=== PATIENT | male | born 1945 | race Caucasian/White ===

== ENCOUNTER 2016-06-20 13:53 | Observation (INO) | payer OTHER, MEDICARE ==
[~2016-06-20] VITALS: Ht 175.3 cm; Wt 107.0 kg
[~2016-06-20 13:53] MED LIST: ARICEPT5 MG PO; ASPIR-TRIN325 M1 PO; ASPIRIN325 MG PO; BENICAR20 MG PO; BISOPROLOL-HCT1 EACH PO; CALTRATE 6001 TABLET PO; COUMADIN,JANTOVE1 MG PO; Coumadin,Jantoven PO; DONEPEZIL HCL10 MG PO; EFFEXOR75 MG PO; ENDOCET 5-3251 EACH PO; FISH OIL 1,2001 EAC3 PO; Keflex PO; LEVOTHYROXINE175 MCG PO; Levothroid,Synthroid PO; Lovenox SC; MEVACOR40 MG PO; MULTIVITAMIN1 EAC2 PO; Omega III EPA + DHA PO; PAXIL10 MG PO; PRAVACHOL80 MG PO; PRILOSEC20 MG PO; PROSCAR5 MG PO; Paxil PO; Prilosec PO; Proscar PO; THERAGRAN1 TABLET PO; TRICOR145 MG PO; VICODIN,LORT1 TABLET PO
[2016-06-20 14:37] LABS: HEMATOCRIT 44.7 % (38.0-50.0); MCH 30.6 PG (29.0-34.0); MCHC 33.1 G/DL (30.0-36.0); MCV 92.4 FL (86-99); MEAN PLAT.VOLUME 11.1 uM^3 (9.0-12.4); PLATELET COUNT 163 K/uL (156-360); RBC DIS.WIDTH-CV 15.1 % (11.8-14.6); RBC DIS.WIDTH-SD 50.9 % (39-53); RED BLOOD COUNT 4.84 M/uL (4.00-5.50)
[2016-06-20 14:40] LABS: WHITE BLOOD COUNT 9.7 K/uL (4.1-10.2)
[2016-06-20 14:42] LABS: CHLORIDE 115 mEq/L (99-109); POTASSIUM 4.4 mEq/L (3.7-5.4); SODIUM 144 mEq/L (136-147)
[2016-06-20 14:44] LABS: GLUCOSE 91 mg/dL (70-99)
[2016-06-20 14:45] LABS: ANION GAP 11 MEQ/L (2-14)
[2016-06-20 14:47] LABS: GFR ESTIMATE (CALCULATED) > 59 mL/min/
[2016-06-20 14:48] LABS: UREA NITROGEN (BUN) 24 mg/dL (9-23)
[2016-06-20 15:37] LABS: INTER. NORMALIZED RATIO 1.1; PROTHROMBIN TIME 11.5 (9.2-11.2); PTT 33.6 (25-32)
[2016-06-20 15:46] LABS: TROP-I INTERPRETATION NEGATIVE; TROPONIN-I < 0.01 ng/mL (0.0-0.30)
[2016-06-20 16:58] LABS: ADD MIUA? YES; BILIRUBIN NEGATIVE; BLOOD NEGATIVE; COLOR YELLOW ((YELLOW)); GLUCOSE (STRIP) NEGATIVE; KETONES NEGATIVE; LEUKOCYTES NEGATIVE; NITRITE NEGATIVE; PROTEIN (STRIP) 30; SPECIFIC GRAVITY 1.021 (1.000-1.030); UROBILINOGEN 0.2 MG/DL (0.2-1.0)
[2016-06-20 17:33] LABS: AMORPHOUS URATES CRYSTALS 2+; BACTERIA NONE SEEN /HPF; CASTS NONE SEEN /LPF; CRYSTALS PRESENT; EPITHELIAL CELLS RARE /HPF; MUCUS NONE SEEN /LPF; RED BLOOD CELLS RARE /HPF (0-5); UCUL ADDED? NO; WHITE BLOOD CELLS NONE SEEN /HPF (0-5)
[2016-06-20] MEDS ORDERED: EFFEXOR XR150 MG PO (17:39)
[2016-06-20] MEDS ORDERED: LOSARTAN POTAS100 MG PO (17:40)
[2016-06-20] MEDS ORDERED: OMEPRAZOLE20 MG PO (17:40)
[2016-06-20] MEDS ORDERED: LEVO-T150 MCG PO (17:40)
[2016-06-20] MEDS ORDERED: GEMFIBROZIL600 MG PO (17:40)
[2016-06-20] MEDS ORDERED: NORCO 5/3251 TABLET PO (17:41)
[2016-06-20] MEDS ORDERED: XARELTO20 MG PO (17:41)
[2016-06-20] MEDS ORDERED: FISH OIL300 MG PO (17:41)
[2016-06-20] MEDS ORDERED: NORVASC5 MG PO (17:42)
[2016-06-20] MEDS ORDERED: DIAMOX250 MG PO (17:42)
[2016-06-20 21:40] VITALS: BP 143/91
[2016-06-20 22:27] LABS: SAMPLE HEMOLYSIS CHECK 0; SAMPLE ICTERIC CHECK 0; SAMPLE LIPEMIA CHECK 0
[2016-06-20 22:33] LABS: HDL CHOLESTEROL 32 MG/DL (Desirable>=40); LDL CHOLESTEROL 102 mg/dL (Desirable<100); NON-HDL CHOLESTEROL 179 mg/dL (Desirable<160); TOTAL CHOLESTEROL 211 mg/dL (Desirable<200); TRIGLYCERIDES 383 MG/DL (Normal: <150)
[2016-06-21 03:43] VITALS: BP 114/61
[2016-06-21 06:00] LABS: HEMATOCRIT 40.8 % (38.0-50.0); MCH 30.5 PG (29.0-34.0); MCHC 33.1 G/DL (30.0-36.0); MCV 92.3 FL (86-99); MEAN PLAT.VOLUME 11.1 uM^3 (9.0-12.4); PLATELET COUNT 147 K/uL (156-360); RBC DIS.WIDTH-CV 14.8 % (11.8-14.6); RBC DIS.WIDTH-SD 50.4 % (39-53); RED BLOOD COUNT 4.42 M/uL (4.00-5.50); WHITE BLOOD COUNT 7.4 K/uL (4.1-10.2)
[2016-06-21 06:23] LABS: ALKALINE PHOSPHATASE 70 IU/L (3-129); ANION GAP 6 MEQ/L (2-14); CHLORIDE 115 MEQ/L (99-109); GFR ESTIMATE (CALCULATED) > 59 mL/min/; GLUCOSE 83 mg/dL (70-99); POTASSIUM 3.6 MEQ/L (3.7-5.4); SAMPLE HEMOLYSIS CHECK 0; SAMPLE ICTERIC CHECK 0; SAMPLE LIPEMIA CHECK 0; SODIUM 143 MEQ/L (136-147); UREA NITROGEN (BUN) 21 mg/dL (9-23)
[2016-06-21 06:29] LABS: Estimated Average Glucose 108 mg/dL (70-123); HEMOGLOBIN A1c (GLYCOHEMOGLOB) 5.4 % HGB (Below 5.7)
[2016-06-21 06:31] LABS: TOTAL BILIRUBIN 0.5 MG/DL (0.0-1.0)
[2016-06-21 09:10] VITALS: BP 133/88
[2016-06-21 11:44] VITALS: BP 146/83
[2016-06-21 16:03] VITALS: BP 122/87
[2016-06-21 21:00] VITALS: BP 114/83
[2016-06-21 23:42] VITALS: BP 110/80
[2016-06-22 04:24] VITALS: BP 117/56
[2016-06-22 06:03] LABS: INTER. NORMALIZED RATIO 1.2; PROTHROMBIN TIME 11.8 (9.2-11.2)
[2016-06-22 06:06] LABS: BASOPHIL COUNT 0.1 K/uL (0-0.1); EOSINOPHIL (%) 3.2 % (0-5); EOSINOPHIL COUNT 0.2 K/uL (0-0.3); HEMATOCRIT 41.4 % (38.0-50.0); IMMATURE GRANULOCYTE (%) 0.3 % (0.0-0.7); INSTRUMENT ABS NEUTROPHIL CT 3.4 K/uL; LYMPHOCYTE COUNT 2.2 K/uL (1.0-2.8); MCH 30.5 PG (29.0-34.0); MCHC 33.3 G/DL (30.0-36.0); MCV 91.6 FL (86-99); MEAN PLAT.VOLUME 11.5 uM^3 (9.0-12.4); MONOCYTE COUNT 0.9 K/uL (0-0.8); NEUTROPHIL (%) 49.6 % (45-76); NEUTROPHIL COUNT 3.4 K/uL (1.8-6.4); PLATELET COUNT 144 K/uL (156-360); RBC DIS.WIDTH-CV 14.9 % (11.8-14.6); RBC DIS.WIDTH-SD 49.7 % (39-53); RED BLOOD COUNT 4.52 M/uL (4.00-5.50); WHITE BLOOD COUNT 6.8 K/uL (4.1-10.2)
[2016-06-22 06:30] LABS: ANION GAP 8 MEQ/L (2-14); CHLORIDE 113 MEQ/L (99-109); GFR ESTIMATE (CALCULATED) > 59 mL/min/; GLUCOSE 84 mg/dL (70-99); SAMPLE HEMOLYSIS CHECK 2; SAMPLE ICTERIC CHECK 0; SAMPLE LIPEMIA CHECK 0; SODIUM 141 MEQ/L (136-147); UREA NITROGEN (BUN) 24 mg/dL (9-23)
[2016-06-22 06:31] LABS: POTASSIUM 4.2 MEQ/L (3.7-5.4)
[2016-06-22 08:09] VITALS: BP 116/75
[2016-06-22 11:11] VITALS: BP 137/82
[2016-06-22 15:28] VITALS: BP 107/75
[2016-06-22 21:00] VITALS: BP 100/54
[2016-06-23 00:44] VITALS: BP 92/50
[2016-06-23 04:22] VITALS: BP 101/56
[2016-06-23 06:24] LABS: INTER. NORMALIZED RATIO 1.1; PROTHROMBIN TIME 10.7 (9.2-11.2)
[2016-06-23 07:00] VITALS: BP 105/698
[2016-06-23 11:08] VITALS: BP 99/57
[2016-06-23 16:05] VITALS: BP 121/74
[2016-06-23 20:30] VITALS: BP 137/90
[2016-06-24 01:12] VITALS: BP 118/63
[2016-06-24 05:45] LABS: INTER. NORMALIZED RATIO 1.2
[2016-06-24 07:26] VITALS: BP 130/86
[2016-06-24 11:39] VITALS: BP 101/56
[2016-06-24] MEDS ORDERED: LOVENOX100 MG/1 M SC (12:04)
[2016-06-24] MEDS ORDERED: COUMADIN5 MG PO (12:04)
[2016-06-24] MEDS ORDERED: PRAVASTATIN SOD40 MG PO (13:07)
== END 2016-06-24 13:25 | disposition home or self-care (01) ==
LOC: EME 13:53 → EDOF 19:45 → 5WEST 19:45 → EDOF 19:45 → 5WEST 21:17
PROVIDERS: Emergency Medicine; Hospitalist; Internal Medicine; Internal Medicine Medical Oncology
DX: G45.9 Transient cerebral ischemic attack, unspecified (principal); E87.6 Hypokalemia; D68.61 Antiphospholipid syndrome; I69.320 Aphasia following cerebral infarction; I69.398 Other sequelae of cerebral infarction; G93.89 Other specified disorders of brain; I10 Essential (primary) hypertension; N40.0 Benign prostatic hyperplasia without lower urinary tract symptoms; F32.9 Major depressive disorder, single episode, unspecified; K21.9 Gastro-esophageal reflux disease without esophagitis; Z87.891 Personal history of nicotine dependence; E03.9 Hypothyroidism, unspecified; D68.51 Activated protein C resistance; D68.2 Hereditary deficiency of other clotting factors; E78.00 Pure hypercholesterolemia, unspecified; F03.90 Unspecified dementia, unspecified severity, without behavioral disturbance, psychotic disturbance, mood disturbance, and anxiety; Z79.01 Long term (current) use of anticoagulants; E87.8 Other disorders of electrolyte and fluid balance, not elsewhere classified; R51 Headache; Z86.718 Personal history of other venous thrombosis and embolism; Z85.05 Personal history of malignant neoplasm of liver; Z98.2 Presence of cerebrospinal fluid drainage device
CPT/HCPCS: 70450; 70551; 71020; 80048; 80053; 80061; 81003; 83036; 84484; 85025; 85027; 85610; 85730; 92523 GN; 92610 GN; 93005; 93306; 95819; 99281; 99285; C8923; G0378; G8978 GP CI; G8979 GP CI; G8980 GP CI; G8987 GO CI; G8988 CI; G8989 GO CI; G9168 GN CJ; G9169 GN CJ; G9170 GN CJ; J1650

== ENCOUNTER 2016-10-25 09:18 | Emergency (ER) | payer OTHER, MEDICARE ==
[~2016-10-25] VITALS: Ht 177.8 cm; Wt 90.9 kg
[~2016-10-25 09:18] MED LIST changes: +COUMADIN5 MG PO; +DIAMOX250 MG PO; +EFFEXOR XR150 MG PO; +FISH OIL300 MG PO; +GEMFIBROZIL600 MG PO; +LEVO-T150 MCG PO; +LOSARTAN POTAS100 MG PO; +LOVENOX100 MG/1 M SC; +NORCO 5/3251 TABLET PO; +NORVASC5 MG PO; +OMEPRAZOLE20 MG PO; +PRAVASTATIN SOD40 MG PO; +XARELTO20 MG PO
[2016-10-25 11:31] LABS: HEMATOCRIT 44.8 % (38.0-50.0); MCH 30.2 PG (29.0-34.0); MCHC 32.8 G/DL (30.0-36.0); MCV 92.2 FL (86-99); MEAN PLAT.VOLUME 11.3 uM^3 (9.0-12.4); PLATELET COUNT 179 K/uL (156-360); RBC DIS.WIDTH-CV 14.6 % (11.8-14.6); RBC DIS.WIDTH-SD 49.4 % (39-53); RED BLOOD COUNT 4.86 M/uL (4.00-5.50); WHITE BLOOD COUNT 7.3 K/uL (4.1-10.2)
[2016-10-25 11:35] LABS: INTER. NORMALIZED RATIO 2.5; PROTHROMBIN TIME 28.8 SEC (10.2-12.9)
[2016-10-25 11:40] LABS: CHLORIDE 110 mEq/L (99-109); POTASSIUM 3.9 mEq/L (3.7-5.4); SODIUM 141 mEq/L (136-147)
[2016-10-25 11:41] LABS: GLUCOSE 98 mg/dL (70-99)
[2016-10-25 11:43] LABS: ANION GAP 7 MEQ/L (2-14)
[2016-10-25 11:45] LABS: GFR ESTIMATE (CALCULATED) > 59 mL/min/
[2016-10-25 11:46] LABS: UREA NITROGEN (BUN) 16 mg/dL (9-23)
[2016-10-25 11:50] LABS: TROP-I INTERPRETATION NEGATIVE; TROPONIN-I 0.02 ng/mL (0.0-0.30)
[2016-10-25 12:29] LABS: ADD MIUA? NO; BILIRUBIN NEGATIVE; BLOOD NEGATIVE; COLOR YELLOW ((YELLOW)); GLUCOSE (STRIP) NEGATIVE; KETONES NEGATIVE; LEUKOCYTES NEGATIVE; NITRITE NEGATIVE; PROTEIN (STRIP) NEGATIVE; SPECIFIC GRAVITY 1.011 (1.000-1.030); UCUL ADDED? NO; UROBILINOGEN 0.2 MG/DL (0.2-1.0)
[2016-10-25 13:24] VITALS: BP 128/83
== END 2016-10-25 13:25 | disposition home or self-care (01) ==
LOC: EME → EDBD 09:18 → EME 09:18
PROVIDERS: Emergency Medicine
DX: R56.9 Unspecified convulsions (principal); Z86.73 Personal history of transient ischemic attack (TIA), and cerebral infarction without residual deficits; Z79.01 Long term (current) use of anticoagulants; Z85.05 Personal history of malignant neoplasm of liver; I10 Essential (primary) hypertension; E78.5 Hyperlipidemia, unspecified; Z87.891 Personal history of nicotine dependence
CPT/HCPCS: 70450; 71010; 80048; 81003; 84484; 85027; 85610; 93005; 99281; 99285

== ENCOUNTER 2016-11-04 13:06 | Emergency (ER) | payer OTHER, MEDICARE ==
[~2016-11-04] VITALS: Ht 177.8 cm; Wt 104.0 kg
[2016-11-04 15:06] LABS: HEMATOCRIT 48.2 % (38.0-50.0); MCH 30.6 PG (29.0-34.0); MCHC 33.2 G/DL (30.0-36.0); MCV 92.2 FL (86-99); MEAN PLAT.VOLUME 10.9 uM^3 (9.0-12.4); PLATELET COUNT 194 K/uL (156-360); RBC DIS.WIDTH-CV 14.6 % (11.8-14.6); RBC DIS.WIDTH-SD 49.7 % (39-53); RED BLOOD COUNT 5.23 M/uL (4.00-5.50)
[2016-11-04 15:15] LABS: CHLORIDE 111 mEq/L (99-109); POTASSIUM 3.7 mEq/L (3.7-5.4); SODIUM 140 mEq/L (136-147)
[2016-11-04 15:17] LABS: GLUCOSE 87 mg/dL (70-99)
[2016-11-04 15:18] LABS: ANION GAP 10 MEQ/L (2-14)
[2016-11-04 15:19] LABS: TOTAL BILIRUBIN 0.4 mg/dL (0.0-1.0)
[2016-11-04 15:20] LABS: ALKALINE PHOSPHATASE 109 IU/L (3-129)
[2016-11-04 15:21] LABS: GFR ESTIMATE (CALCULATED) > 59 mL/min/
[2016-11-04 15:22] LABS: UREA NITROGEN (BUN) 20 mg/dL (9-23)
[2016-11-04 15:24] LABS: LIPASE 39 U/L (1.0-51.0)
[2016-11-04 15:30] LABS: INTER. NORMALIZED RATIO 2.1
[2016-11-04 15:33] LABS: PTT 45.8 SEC (25-37)
[2016-11-04 17:03] LABS: ADD MIUA? NO; BILIRUBIN NEGATIVE; BLOOD NEGATIVE; COLOR YELLOW ((YELLOW)); GLUCOSE (STRIP) NEGATIVE; KETONES NEGATIVE; LEUKOCYTES NEGATIVE; NITRITE NEGATIVE; PROTEIN (STRIP) NEGATIVE; SPECIFIC GRAVITY 1.031 (1.000-1.030)
[2016-11-04] MEDS ORDERED: PERCOCET 5/31 TABLET PO (17:35)
[2016-11-04 18:45] VITALS: BP 142/90
== END 2016-11-04 18:45 | disposition home or self-care (01) ==
LOC: EME 13:06
PROVIDERS: Nurse Practitioner Family
DX: S30.1XXA Contusion of abdominal wall, initial encounter (principal); W01.198A Fall on same level from slipping, tripping and stumbling with subsequent striking against other object, initial encounter; Y92.007 Garden or yard of unspecified non-institutional (private) residence as the place of occurrence of the external cause; Y93.01 Activity, walking, marching and hiking; F03.90 Unspecified dementia, unspecified severity, without behavioral disturbance, psychotic disturbance, mood disturbance, and anxiety; E03.9 Hypothyroidism, unspecified; Z79.01 Long term (current) use of anticoagulants; Z86.73 Personal history of transient ischemic attack (TIA), and cerebral infarction without residual deficits; Z85.05 Personal history of malignant neoplasm of liver; Z87.891 Personal history of nicotine dependence
CPT/HCPCS: 74177; 80053; 81003; 83690; 85027; 85610; 85730; 99281; 99284; J3010; J7030

== ENCOUNTER → 2017-02-11 | Outpatient (CLI) | payer MEDICARE ==
[~2017-02-11] MED LIST changes: +PERCOCET 5/31 TABLET PO
== END | disposition home or self-care (01) ==
LOC: CDC 11:14
DX: Z01.810 Encounter for preprocedural cardiovascular examination (principal); C63.2 Malignant neoplasm of scrotum; I49.3 Ventricular premature depolarization; R94.31 Abnormal electrocardiogram [ECG] [EKG]
CPT/HCPCS: 93000